=== PATIENT | male | born 1955 | race Caucasian/White ===

== ENCOUNTER 2021-07-11 14:21 | Emergency (ER) | payer MEDICARE ==
[~2021-07-11] VITALS: Ht 177.8 cm; Wt 127.0 kg
== END 2021-07-11 17:10 | disposition home or self-care (01) ==
LOC: ER1 14:21
DX: U07.1 COVID-19 (principal); I12.9 Hypertensive chronic kidney disease with stage 1 through stage 4 chronic kidney disease, or unspecified chronic kidney disease; N18.9 Chronic kidney disease, unspecified; Z90.89 Acquired absence of other organs; Z88.8 Allergy status to other drugs, medicaments and biological substances; Z23 Encounter for immunization
CPT/HCPCS: 99283; M0243